=== PATIENT | female | born 1950 | race Caucasian/White ===

== ENCOUNTER 2016-10-19 08:07 | Day surgery (SDC) | payer MEDICARE, OTHER ==
[2016-10-18 10:51] LABS: HEMATOCRIT 42.1 % (36.0-48.0); HEMOGLOBIN 14.6 g/dL (12.0-16.0)
[2016-10-18 11:06] LABS: A/G RATIO 0.9 (0.7-1.9); ALBUMIN 3.5 G/DL (3.5-5.0); ALKALINE PHOSPHATASE 72 U/L (45-117); BUN (BLOOD UREA NITROGEN) 14 MG/DL (6-23); CALCIUM, SERUM 8.6 MG/DL (8.5-10.4); CHLORIDE, SERUM 104 MMOL/L (96-112); CO2 (CARBON DIOXIDE) 29 MMOL/L (24-34); CREATININE 0.72 MG/DL (0.55-1.02); GFR AFRICAN AMERICAN 101 ML/MIN (>=60); GFR NON AFRICAN AMERICAN 87 ML/MIN (>=60); GLOBULIN 3.8 G/DL (2.5-4.1); GLUCOSE, SERUM 92 MG/DL (60-99); POTASSIUM, SERUM 3.6 MMOL/L (3.5-5.3); SGOT(AST) 17 U/L (5-40); SGPT(ALT) 26 U/L (5-65); SODIUM, SERUM 143 MMOL/L (135-148); TOTAL BILIRUBIN 0.4 MG/DL (0-1.2); TOTAL PROTEIN 7.3 G/DL (6.0-8.5)
--- NOTE | ~2016-10-19 | OP ---
Record Of Operation [facility] [address] [place]. [address] NAME: FRANCINE VICKERS : 50 STATUS : [facility]#: [id number] AGE: 66 ADM/REG DATE : 10/19/16 MR#: [id number] REPORT SERV DATE: 10/19/16 DICTATED BY: WALDO YOO DATE: 10/19/16 REPORT STATUS : Draft TRANSCRIBED BY: TRINIDAD DATE: 10/19/16 DATE OF PROCEDURE: PREOPERATIVE DIAGNOSIS: Right breast large invasive ductal cancer. POSTOPERATIVE DIAGNOSIS: Right breast large invasive ductal cancer. PROCEDURE: 1. Right breast segmentectomy. 2. Right axillary sentinel lymph node biopsy. 3. One of the portion of the procedure is an oncoplastic closure of the breast wound. INDICATION FOR THE PROCEDURE: Ms. Vickers is a healthy 66-year-old female, with a very large right breast cancer. On exam, it measured somewhere between 3 and 4 cm, on MRI it appears to be somewhat greater than 5.5 cm in largest dimension. The patient is strongly motivated for breast preservation. I do think it is worth a try, however, I am somewhat concerned about cosmesis. The patient is also scheduled for right axillary sentinel node biopsy. The patient presented for lymphoscintigraphy scan earlier today showing good uptake in the axilla. OPERATIVE FINDINGS: After appropriate consent was on the chart, the patient was taken to the operating room in supine position. She was placed under general anesthesia without any complications. The gamma probe was placed in the right axilla and good uptake was noted. Methylene blue was not used. Ultrasound was again utilized to visualize the tumor which is quite vague on the ultrasound. The patient's right breast and axilla were prepped and draped in sterile fashion. An area drawn on the skin to note where the tumor is palpable, the incision was made in a radial fashion from the areolar edge out passed the palpable lesion. Sharp dissection was carried down to the level of the breast parenchyma and immediately flaps were created in all directions around the palpable tumor. Dissection included all of the soft tissue of the dermis overlying the tumor, as well as all the way down to the muscle fascia which was taken off the muscle in the most deep portion of the incision of the wound. The mediolaterally, superiorly, and inferiorly dissection was carried out passed the palpable tumor. This was marked with sutures and sent for immediate evaluation by Pathology. Pathology felt that we were closest to both superficial and deep, however, no additional tissue can be taken in these areas without taking muscle or skin. Additionally, we appeared to be somewhat close at the 12 o'clock position. However, I did not take additional tissue here as I was somewhat concerned regarding the skin edge here. The wound was copiously irrigated with warm saline. Hemostasis was achieved. Local anesthetic was infiltrated in the skin and soft tissue and the incision was closed in an oncoplastic fashion. Flaps were created in the deep dermal tissues both superiorly and inferiorly. There was no essential deep dermal tissue directly over the lesion remaining. Dissection was carried out approximately 7 cm in these directions as well as medially and laterally. Approximately 25 square cm of tissue was elevated. The flaps were then sewn together using a 3-0 Vicryl suture in running fashion to try to get coverage over the muscle, at that point, the skin edges were reapproximated using a running Vicryl suture, followed by running Monocryl suture. The skin was cleansed and dried. Dermabond was Record Of Operation [address] [address] NAME: FRANCINE VICKERS : 50 STATUS : [facility] PAT#: [id number] AGE: 66 ADM/REG DATE : 10/19/16 MR#: [id number] REPORT SERV DATE: 10/19/16 DICTATED BY: WALDO YOO DATE: 10/19/16 REPORT STATUS : Draft TRANSCRIBED BY: MODL DATE: 10/19/16 overlaid. The right axillary sentinel node biopsy was performed in routine fashion. The sentinel node was found using the [employer] counter following this the sentinel lymph node was excised. The sentinel lymph node #1 had an ex-vivo count of [id number], sentinel node #2 had an ex-vivo count of 3665. Both of these nodes were evaluated by Pathology. Node #1 had no obvious malignancy. Node #2 did have some gross abnormality consistent with malignancy. Due to new NCCN guidelines, we do not take the remainder of the axillary fat pad, and we will await final pathologic review. This patient is by all means going to get radiation and therefore we will await the final recommendation for the axilla once we have the final path report. The axilla was irrigated copiously with warm saline. Hemostasis was achieved. Local anesthetic was infiltrated skin and soft tissue and the incision closed in two layers of Monocryl. Both incisions were covered with Dermabond. A burn fluff and a binder was placed on the patient prior to awakening. All counts were correct at the end of the case. ESTIMATED BLOOD LOSS: 25 mL. COMPLICATIONS: None. SPECIMEN: 1. Right breast 10 o'clock segment. 2. Right axillary sentinel node x2. ZOILA/MODL Waldo Yoo MD / [id number] CC: MD Memo Maldonado M.D. [facility]
[~2016-10-19 08:07] MED LIST: ACET500CAP PO; ALLEGRA180 PO; B COMPLETE PO; CALTRA600D PO; CENTRUM PO; LOP50 PO; LOTREL1 CA3 PO; MOVE FREE ULTR1 EAC1 PO; OMEGA-3 KRILL PO; VITC500 PO; [UNRECOGNIZED DRUG - CODE] T
[2016-11-13] MEDS ORDERED: FERROUS SULF325 M1 PO (08:57)
[2016-11-13] MEDS ORDERED: ULTRAM50 PO (09:53)
[2016-11-13] MEDS ORDERED: ADVIL PO (09:53)
== END 2016-10-19 17:14 | disposition home or self-care (01) ==
LOC: SDC 08:07
PROVIDERS: Surgery Surgical Oncology
PROC: 07B50ZX Excision of Right Axillary Lymphatic, Open Approach, Diagnostic (ICD-10-PCS; 2016-10-19)
PROC: 0HBT0ZX Excision of Right Breast, Open Approach, Diagnostic (ICD-10-PCS; principal; 2016-10-19 12:15)
DX: C50.411 Malignant neoplasm of upper-outer quadrant of right female breast (principal); I10 Essential (primary) hypertension; M19.90 Unspecified osteoarthritis, unspecified site; Z88.2 Allergy status to sulfonamides; Z88.1 Allergy status to other antibiotic agents; Z79.52 Long term (current) use of systemic steroids; Z79.899 Other long term (current) drug therapy; Z98.890 Other specified postprocedural states
CPT/HCPCS: 71020; 78195; 80053; 85014; 85018; 88307; 88331; 88333; 93005; A9270-GY; A9541; C1769; J0690; J2250; J2405; J3010

== ENCOUNTER 2016-11-16 08:45 | Day surgery (SDC) | payer MEDICARE, OTHER ==
[2016-11-13 12:19] LABS: BASOPHILS 0.4 %; BASOPHILS ABSOLUTE 0.03 10/3/uL (0.0-0.16); EOSINOPHILS 4.3 %; EOSINOPHILS ABSOLUTE 0.31 10/3/uL (0.0-0.53); HEMATOCRIT 39.6 % (36.0-48.0); HEMOGLOBIN 13.6 g/dL (12.0-16.0); IMMATURE GRANULOCYTES 0.3 %; IMMATURE GRANULOCYTES ABSOLUTE 0.02 10/3/uL (0.0-0.11); LYMPHOCYTES 20.3 %; LYMPHOCYTES ABSOLUTE 1.45 10/3/uL (0.67-4.30); MEAN CORPUS HGB CONC 34.3 g/dL (32.0-36.0); MEAN CORPUSCULAR HEMOGLOB 30.2 pg (26.0-34.0); MEAN CORPUSCULAR VOLUME 87.8 fL (80-100); MEAN PLATELET VOLUME 10.2 fL (9.2-13.0); MONOCYTES 7.6 %; MONOCYTES ABSOLUTE 0.54 10/3/uL (0.21-1.20); NEUTROPHILS 67.1 %; NEUTROPHILS ABSOLUTE 4.78 10/3/uL (2.02-8.40); PLATELET COUNT 219 10/3/uL (150-400); RBC DISTRIBUTION WIDTH 12.3 % (12.0-16.0); RED CELL COUNT 4.51 10/6/uL (4.0-5.6); WHITE BLOOD CELLS 7.1 10/3/uL (4.5-10.5)
[2016-11-13 12:23] LABS: MANUAL DIFF NO %
[2016-11-13 12:34] LABS: BUN (BLOOD UREA NITROGEN) 12 MG/DL (6-23); CALCIUM, SERUM 9.1 MG/DL (8.5-10.4); CHLORIDE, SERUM 106 MMOL/L (96-112); CO2 (CARBON DIOXIDE) 29 MMOL/L (24-34); CREATININE 0.62 MG/DL (0.55-1.02); GFR AFRICAN AMERICAN 109 ML/MIN (>=60); GFR NON AFRICAN AMERICAN 94 ML/MIN (>=60); GLUCOSE, SERUM 98 MG/DL (60-99); POTASSIUM, SERUM 3.6 MMOL/L (3.5-5.3); SODIUM, SERUM 142 MMOL/L (135-148)
--- NOTE | ~2016-11-16 | OP ---
Record Of Operation [facility] [address] [place]. [address] NAME: FRANCINE VICKERS : 50 STATUS : REG [facility] PAT#: [id number] AGE: 66 ADM/REG DATE : 11/16/16 MR#: [id number] REPORT SERV DATE: 11/16/16 DICTATED BY: WALDO YOO DATE: 11/16/16 REPORT STATUS : Draft TRANSCRIBED BY: TRINIDAD DATE: 11/16/16 DATE OF PROCEDURE: PREOPERATIVE DIAGNOSIS: Right breast invasive ductal cancer. POSTOPERATIVE DIAGNOSIS: Right breast invasive ductal cancer. PROCEDURES: 1. Placement of a left chest wall venous port internal jugular access. 2. Intraoperative ultrasound for venous access. 3. Intraoperative fluoroscopy with interpretation. INDICATION FOR THE PROCEDURE: Ms. Vickers is a healthy 66-year-old female with a stage IIB breast cancer. We will be moving forward with neoadjuvant chemotherapy. A port will need to be placed today. OPERATIVE FINDINGS: After appropriate consent was noted on the chart, the patient was taken to the operating room in supine position. She was placed under monitored anesthesia without complication. Ultrasound was placed into the left neck and the internal jugular vein noted in the normal anatomic position and patent. The patient's bilateral chest wall and neck were prepped and draped in a sterile fashion. A draped ultrasound probe was again utilized to visualize the left internal jugular vein and local anesthetic was instilled into the soft tissues overlying the vein. The vein was accessed with a single pass of the Seldinger needle under direct ultrasound guidance and nonpulsatile venous appearing blood was noted in the syringe. The syringe was removed and the wire passed with ease. Fluoroscopy noted the wire to be in good position in the vena cava. The needle was removed from the skin and the wire secured for later use. A port pocket was created using a #15 blade. Sharp dissection carried down to the level of the breast parenchyma and a port pocket created with Bovie cauterization. Two stay sutures were placed at the 9 o'clock and 3 o'clock position of Prolene. The vein access site was then lengthened with a #11 blade and the tunneling device utilized to create a new subcutaneous tunnel. The catheter was pulled through without issue. The dilator with tear-away sheath were placed over the wire and with constant movement of the wire, the vein was dilated. The dilator and wire were removed from the sheath leaving the sheath in the vein. The catheter was placed into the sheath and the sheath torn away. Using constant fluoroscopy, the catheter was pulled back to the atriocaval junction. The catheter was trimmed at the port pocket for length and attached to the port with the securing device. The port was noted to aspirate and flush with ease. It was packed with heparinized saline. The port was placed into the port pocket and secured with the sutures. The incision was closed in two layers of Monocryl. Skin was cleansed and dried and Dermabond overlaid. The patient was awoken from anesthesia without complication and taken to the PACU in stable condition for recovery. All counts were correct at the end of the case. ESTIMATED BLOOD LOSS: 10 mL. COMPLICATIONS: None. Record Of Operation [address] [place]. [address] NAME: FRANCINE VICKERS : 50 STATUS : REG [facility] PAT#: [id number] AGE: 66 ADM/REG DATE : 11/16/16 MR#: [id number] REPORT SERV DATE: 11/16/16 DICTATED BY: WALDO YOO DATE: 11/16/16 REPORT STATUS : Draft TRANSCRIBED BY: TRINIDAD DATE: 11/16/16 SPECIMENS: None. ZOILA/TRINIDAD Waldo Yoo MD / [id number] CC: MD Memo Maldonado M.D. Brooke R. Daniel, M.D. [facility]
[~2016-11-16 08:45] MED LIST changes: +ADVIL PO; +FERROUS SULF325 M1 PO; +ULTRAM50 PO
== END 2016-11-16 23:59 | disposition home or self-care (01) ==
LOC: SDC 08:45
PROVIDERS: Surgery Surgical Oncology
PROC: B5141ZA Fluoroscopy of Left Jugular Veins using Low Osmolar Contrast, Guidance (ICD-10-PCS; 2016-11-16)
PROC: 05HN33Z Insertion of Infusion Device into Left Internal Jugular Vein, Percutaneous Approach (ICD-10-PCS; principal; 2016-11-16 10:45)
DX: C50.911 Malignant neoplasm of unspecified site of right female breast (principal); I10 Essential (primary) hypertension; K21.9 Gastro-esophageal reflux disease without esophagitis; Z88.2 Allergy status to sulfonamides; Z88.1 Allergy status to other antibiotic agents; Z79.1 Long term (current) use of non-steroidal anti-inflammatories (NSAID); Z79.899 Other long term (current) drug therapy; Z79.891 Long term (current) use of opiate analgesic
CPT/HCPCS: 71010; 77001; 80048; 85025; C1751; J0690; J2250; J3010